=== PATIENT | female | born 1960 | race Two or more races ===

== ENCOUNTER 2025-02-19 22:13 | Emergency (ER) | payer OTHER ==
[~2025-02-19] VITALS: Ht 157.5 cm; Wt 59.0 kg
[2025-02-19] MEDS ORDERED: CRESTOR40 MG PO (22:39)
[2025-02-20] MEDS ORDERED: FAMOTIDINE/PF 20 MG/2 ML VIAL IV STA (00:14)
[2025-02-20] MEDS ORDERED: ONDANSETRON HCL 2 MG/ML VIAL IV STA (00:14)
[2025-02-20] MEDS ORDERED: 0.9 % SODIUM CHLORIDE 1,000 ML IV STA (00:14)
[2025-02-20 01:48] LABS: BASO % 0.6 % (0.1-1.2); EOS # 0.11 (0.04-0.54); EOS % 2.4 % (0.7-7.0); LYMPH # 0.75 (1.18-3.74); LYMPH % 16.2 % (19.3-53.1); MEAN PLATELET VOLUME 10.10 fl (9.4-12.4); MONO # 0.40 (0.24-0.82); MONO % 8.6 % (4.7-12.5); NEUT # 3.32 (1.56-6.13); NEUT % 71.8 % (34.0-71.1); RED CELL DISTRIBUTION WIDTH 12.6 % (11.6-14.4)
[2025-02-20] MEDS ORDERED: CIPRO500 MG PO (02:12)
[2025-02-20] MEDS ORDERED: VALACYCLOVIR500 MG PO (02:12)
[2025-02-20] MEDS ORDERED: METRONIDAZOLE500 MG PO (02:12)
[2025-02-20] MEDS ORDERED: PRILOSEC OTC20 MG PO (02:12)
[2025-02-20] MEDS ORDERED: PEPCID AC20 MG PO (02:12)
[2025-02-20] MEDS ORDERED: NIX59 M1 TOP (02:12)
[2025-02-20 02:16] LABS: ALT/SGPT 37.0 U/L (12-78); AST/SGOT 29.0 U/L (15-37); BILIRUBIN TOTAL 0.47 mg/dL (0.3-1.2); BUN CREA RATIO 18.0 (7.0-25.0); CREATININE SERUM 0.73 mg/dL (0.55-1.02); GFR 79.76; GLOBULINA 3.9 G/DL (2.4-3.5); GLUCOSE FASTING 108.0 mg/dL (65-100); OSMOLALITY SERUM 286.0 MOSM/KG (275-295)
== END 2025-02-20 02:36 | disposition home or self-care (01) ==
LOC: ER 22:13
PROVIDERS: Physician Assistant Medical
DX: K52.9 Noninfective gastroenteritis and colitis, unspecified (principal); B86 Scabies; B02.9 Zoster without complications; R21 Rash and other nonspecific skin eruption